=== PATIENT | male | born 1980 | race American Indian/Alaskan Native ===

== ENCOUNTER 2019-03-31 11:09 | Emergency (ER) | payer SELFPAY ==
[2019-03-31] MEDS ORDERED: ASPIRIN PO ONE (11:24)
--- NOTE | 2019-03-31 11:25 | Event Note ---
ED Screening Note Date of service: 03/31/19 Time: 11:22 ED Screening Note: This is a 38 y.o. M. that presents to the ER with chest pain, vomiting, and blurry vision x 3 days. PMH of HTN This initial assessment/diagnostic orders/clinical plan/treatment(s) is/are subject to change based on patients health status, clinical progression and re- assessment by fellow clinical providers in the ED. Further treatment and workup at subsequent clinical providers discretion. Patient/guardian urged not to elope from the ED as their condition may be serious if not clinically assessed and managed. Initial orders include: Labs, EKG, and CXR
[2019-03-31 12:20] LABS: Basophils % (Auto) 0.2 % (0.0-1.8); Eosinophils # (Auto) 0.4 K/mm3 (0.0-0.4); Eosinophils % (Auto) 7.6 % (0.0-4.3); Hematocrit 51.1 % (35.5-45.6); Lymphocytes # (Auto) 1.3 K/mm3 (1.2-5.4); Lymphocytes % (Auto) 27.1 % (13.4-35.0); Mean Corpuscular HGB Conc 33 % (32-34); Mean Corpuscular Volume 92 fl (84-94); Monocytes # (Auto) 0.5 K/mm3 (0.0-0.8); Monocytes % (Auto) 9.7 % (0.0-7.3); Platelet Count 251 K/mm3 (140-440); Red Blood Count 5.58 M/mm3 (3.65-5.03); Red Cell Distribution Width 13.6 % (13.2-15.2)
--- NOTE | 2019-03-31 12:28 | XRay Report ---
CHEST 1 VIEW INDICATION / CLINICAL INFORMATION: Chest Pain. COMPARISON: None available. FINDINGS: SUPPORT DEVICES: None. HEART / MEDIASTINUM: No significant abnormality. LUNGS / PLEURA: No significant pulmonary or pleural abnormality. No pneumothorax. ADDITIONAL FINDINGS: No significant additional findings. IMPRESSION: 1. No significant change Signer Name: Juan Carlos Heard MD Signed: 03/31/2019 12:23 PM Workstation Name: [id number]
[2019-03-31 12:42] LABS: BUN/Creatinine Ratio 8; Blood Urea Nitrogen 16 mg/dL (9-20); Calcium 9.2 mg/dL (8.4-10.2); Hemolysis Index 20
--- NOTE | 2019-03-31 14:20 | Emergency Department Report ---
ED Chest Pain HPI - General Chief Complaint: Chest Pain Stated Complaint: CHEST PAIN/BLURRED VISION Time Seen by Provider: 03/31/19 11:22 Source: patient Mode of arrival: Ambulatory Limitations: No Limitations - History of Present Illness Initial Comments: 38 year-old -Turkish male with no past medical history presents to the emergency room complaining of intermittent chest pain that started last night. Patient also endorses that he had nausea and vomiting on and Monday and had resolved on Monday. Patient reported he had shortness of breath walking which has resolved. Patient reported it was sharp pains worse with walking and better with rest. Patient currently denies any chest pain now denies any nausea no vomiting no abdominal pain or shortness of breath no blurred vision. Patient reports that he had not eaten secondary to concern for vomiting. Patient reports that he is hungry at this time. 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 MD Complaint: chest pain -: This morning Onset: during exertion Pain Location: substernal Severity scale (0 -10): 0 Quality: sharp Consistency: intermittent Improves With: rest Worsens With: other (walking) re: nausea (resolved), vomting (Resolved) Treatments Prior to Arrival: none - Related Data Allergies Allergy/AdvReac Type Severity Reaction Status Date / Time No Known Allergies Allergy Unverified 03/31/19 11:10 Heart Score - HEART Score History: Slightly suspicious EKG: Non-specific Age: < 45 Risk factors: 1-2 risk factors Troponin: < normal limit HEART Score: 2 ED Review of Systems ROS: Stated complaint: CHEST PAIN/BLURRED VISION Other details as noted in HPI Comment: All other systems reviewed and negative ED Past Medical Hx - Past Medical History Previous Medical History?: No - Surgical History Past Surgical History?: No - Social History Smoking Status: Never Smoker Substance Use Type: None ED Physical Exam - General Limitations: No Limitations General appearance: alert, in no apparent distress - Head Head exam: Present: atraumatic, normocephalic - Eye Eye exam: Present: normal appearance - ENT ENT exam: Present: mucous membranes moist - Neck Neck exam: Present: normal inspection - Respiratory Respiratory exam: Present: normal lung sounds bilaterally. Absent: respiratory distress, chest wall tenderness - Cardiovascular Cardiovascular Exam: Present: regular rate, normal rhythm. Absent: systolic murmur, diastolic murmur, rubs, gallop - GI/Abdominal GI/Abdominal exam: Present: soft, normal bowel sounds. Absent: distended, tenderness - Rectal Rectal exam: Present: deferred - Extremities Exam Extremities exam: Present: normal inspection. Absent: pedal edema, joint swelling - Back Exam Back exam: Present: normal inspection - Neurological Exam Neurological exam: Present: alert, oriented X3 - Psychiatric Psychiatric exam: Present: normal affect, normal mood - Skin Skin exam: Present: warm, dry, intact, normal color. Absent: rash ED Course Vital Signs 03/31/19 03/31/19 03/31/19 11:21 12:22 12:27 Temperature 97.5 F L Pulse Rate 116 H 100 H Respiratory 20 16 Rate Blood Pressure 154/110 Blood Pressure 149/105 [Left] O2 Sat by Pulse 98 96 97 Oximetry 03/31/19 03/31/19 03/31/19 12:30 13:00 13:30 Temperature Pulse Rate 99 H 94 H 87 Respiratory 14 13 13 Rate Blood Pressure 149/105 144/105 154/109 Blood Pressure [Left] O2 Sat by Pulse 96 98 Oximetry MIRNA score - Mirna Score Age > 65: (0) No Aspirin use within the Past 7 Days: (0) No 3 or more CAD Risk Factors: (0) No 2 or more Angina events in past 24 hrs: (0) No Known CAD with more than 50% Stenosis: (0) No Elevated Cardiac Markers: (0) No ST Deviation Greater than 0.5mm: (0) No MIRNA Score: 0 ED Medical Decision Making - Lab Data Result diagrams: 03/31/19 12:09 03/31/19 12:09 - Medical Decision Making 38 year-old -Turkish male with no past medical history presents to the emergency room complaining of intermittent chest pain that started last night. Patient also endorses that he had nausea and vomiting on and Monday and had resolved on Monday. Patient reported he had shortness of breath walking which has resolved. Patient reported it was sharp pains worse with walking and better with rest. Patient currently denies any chest pain now denies any nausea no vomiting no abdominal pain or shortness of breath no blurred vision. Patient reports that he had not eaten secondary to concern for vomiting. Patient reports that he is hungry at this time. 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 Patient workup is within normal limits. Patient currently has no complaints during my interview and my assessment. Patient be discharged home to follow up with a primary care provider and he can follow-up with [facility]. Critical care attestation.: If time is entered above; I have spent that time in minutes in the direct care of this critically ill patient, excluding procedure time. ED Disposition Clinical Impression: Nausea and vomiting in adult, Atypical chest pain Disposition: DC- TO HOME OR SELFCARE Is pt being admited?: No Does the pt Need Aspirin: No Condition: Stable Instructions: Chest Pain (ED), Acute Nausea and Vomiting (ED) Additional Instructions: Please follow-up with shoe salesman and her primary care provider. Referrals: [facility] [Provider Group] - 3-5 Days [facility] [Outside] - 3-5 Days Forms: Work/School Release Form(ED)
[2019-03-31 15:18] LABS: Alanine Aminotransferase 13 units/L (7-56); Albumin 3.9 g/dL (3.9-5)
[2019-03-31 15:24] LABS: Bilirubin,Direct < 0.2 mg/dL (0-0.2)
[2019-03-31 16:13] LABS: Bacteria,Urine 1+ /HPF (Negative); Bilirubin,Urine NEG (Negative); Blood,Urine SM (Negative); Color,Urine Yellow (Yellow); Mucus,Urine FEW /HPF; Protein,Urine <15 mg/dL mg/dL (Negative); Urobilinogen,Urine < 2.0 mg/dL (<2.0)
[2019-03-31 17:31] VITALS: BP 153/110
== END 2019-03-31 17:31 | disposition home or self-care (01) ==
LOC: ED 11:09
DX: R11.2 Nausea with vomiting, unspecified (principal); R07.89 Other chest pain
CPT/HCPCS: 36415; 71045; 80048; 80076; 81001; 84484; 85025; 93005; 93010

== ENCOUNTER 2020-06-01 19:07 | Emergency (ER) | payer SELFPAY ==
[2020-06-01] MEDS ORDERED: ACETAMINOPHEN 325 MG TAB PO ONE (19:40)
[2020-06-01] MEDS ORDERED: diphenhydrAMINE 25 MG CAP PO ONE (19:40)
[2020-06-01] MEDS ORDERED: IBUPROFEN 600 MG TAB PO ONE (19:40)
[2020-06-01] MEDS ORDERED: DIPHtheria,PERTUSSIS(ACELL),TETANUS VACCINE/PF 0.5 ML VIAL IM ONE (19:41)
--- NOTE | 2020-06-01 19:41 | Emergency Department Report ---
- General Chief complaint: Skin/Abscess/Foreign Body Stated complaint: INSECT BITE Time Seen by Provider: 06/01/20 19:40 Source: patient Mode of arrival: Wheelchair Limitations: No Limitations - History of Present Illness Initial comments: Patient is a 39-year-old male who presents emergency room with complaints of a insect bite to the right foot that occurred couple hours prior to arrival. He states that he felt something bite him but did not see what it was. He states he has pain and a burning sensation to his foot. He denies any fever, vomiting, diarrhea, numbness, weakness. He denies any known allergies. No past medical history. He states he is unsure of his last tetanus immunization. - Related Data Previous Rx's Medication Instructions Recorded Last Taken Type cephALEXin [Keflex] 500 mg PO QID 7 Days #28 cap 06/01/20 Unknown Rx diphenhydrAMINE [Benadryl CAP] 25 mg PO Q8HR PRN #14 capsule 06/01/20 Unknown Rx Allergies Allergy/AdvReac Type Severity Reaction Status Date / Time No Known Allergies Allergy Verified 06/01/20 19:22 Abscess Boil HPI - HPI Chief Complaint: Skin/Abscess/Foreign Body Stated Complaint: INSECT BITE Time Seen by Provider: 06/01/20 19:40 Home Medications: Previous Rx's Medication Instructions Recorded Last Taken Type cephALEXin [Keflex] 500 mg PO QID 7 Days #28 cap 06/01/20 Unknown Rx diphenhydrAMINE [Benadryl CAP] 25 mg PO Q8HR PRN #14 capsule 06/01/20 Unknown Rx Allergies/Adverse Reactions: Allergies Allergy/AdvReac Type Severity Reaction Status Date / Time No Known Allergies Allergy Verified 06/01/20 19:22 ED Review of Systems ROS: Stated complaint: INSECT BITE Other details as noted in HPI Comment: All other systems reviewed and negative ED Past Medical Hx - Past Medical History Previous Medical History?: No - Surgical History Past Surgical History?: No - Social History Smoking Status: Never Smoker Substance Use Type: None - Medications Home Medications: Home Medications Medication Instructions Recorded Confirmed Last Taken Type cephALEXin [Keflex] 500 mg PO QID 7 Days #28 cap 06/01/20 Unknown Rx diphenhydrAMINE [Benadryl CAP] 25 mg PO Q8HR PRN #14 capsule 06/01/20 Unknown Rx ED Physical Exam - General Limitations: No Limitations General appearance: alert, in no apparent distress - Head Head exam: Present: atraumatic, normocephalic - Eye Eye exam: Present: normal appearance - ENT ENT exam: Present: mucous membranes moist - Respiratory Respiratory exam: Absent: respiratory distress, accessory muscle use - Neurological Exam Neurological exam: Present: alert, oriented X3 - Psychiatric Psychiatric exam: Present: normal affect, normal mood - Skin Skin exam: Present: warm, dry, other (2 cm area of erythema to the right dorsal foot just below the toes, no induration or fluctuance, no necrosis, no opening, no bite sewell, neurovascularly intact,FROM) ED Course Vital Signs 06/01/20 21:09 Temperature 98.3 F Pulse Rate 95 H Respiratory 20 Rate Blood Pressure 136/84 [Left] O2 Sat by Pulse 97 Oximetry ED Medical Decision Making - Medical Decision Making Patient is a 39-year-old male who presents emergency room with complaints of a insect bite to the right foot that occurred couple hours prior to arrival. He states that he felt something bite him but did not see what it was. He states he has pain and a burning sensation to his foot. He denies any fever, vomiting, diarrhea, numbness, weakness. He denies any known allergies. No past medical history. He states he is unsure of his last tetanus immunization. VSS. on exam: 2 cm area of erythema to the right dorsal foot just below the toes, no induration or fluctuance, no necrosis, no opening, no bite sewell, neurovascularly intact,FROM. Symptoms with localized cellulitis. Patient given ibuprofen, Tylenol, Benadryl, Tdap while in the emergency department and symptoms completely improved and he was feeling much better made to go home. Patient given prescription for Keflex and Benadryl. Advised patient Please take medication as prescribed. Benadryl may cause drowsiness, do not drive or operate machinery while taking. Follow-up with primary care doctor. Return to emergency room for any new or worsening symptoms. Critical care attestation.: If time is entered above; I have spent that time in minutes in the direct care of this critically ill patient, excluding procedure time. ED Disposition Clinical Impression: Insect bite Qualifiers: Encounter type: initial encounter Site of insect bite: foot Laterality: right Qualified Code(s): S90.861A - Insect bite (nonvenomous), right foot, initial encounter Cellulitis Qualifiers: Site of cellulitis: extremity Site of cellulitis of extremity: lower extremity Laterality: right Qualified Code(s): L03.115 - Cellulitis of right lower limb Disposition: - TO HOME OR SELFCARE Is pt being admited?: No Does the pt Need Aspirin: No Condition: Stable Instructions: Cellulitis, Adult, [id number], Insect Bite, Adult Additional Instructions: Please take medication as prescribed. Benadryl may cause drowsiness, do not drive or operate machinery while taking. Follow-up with primary care doctor. Return to emergency room for any new or worsening symptoms. Prescriptions: diphenhydrAMINE [Benadryl CAP] 25 mg PO Q8HR PRN #14 capsule PRN Reason: itching/swelling cephALEXin [Keflex] 500 mg PO QID 7 Days #28 cap Referrals: STEPHANIE VALVERDE MD [Primary Care Provider] - 2-3 Days IDALIA BOOTH MD [Staff Physician] - 2-3 Days [facility] [Provider Group] - 2-3 Days Time of Disposition: 20:14 Print Language: ICELANDIC
[2020-06-01 21:10] VITALS: BP 136/84
== END 2020-06-01 21:00 | disposition home or self-care (01) ==
LOC: ED 19:07
DX: S91.351A Open bite, right foot, initial encounter (principal); L03.115 Cellulitis of right lower limb; Z79.899 Other long term (current) drug therapy; X58.XXXA Exposure to other specified factors, initial encounter; Y93.89 Activity, other specified; Y92.89 Other specified places as the place of occurrence of the external cause; Y99.8 Other external cause status
CPT/HCPCS: 90471; 90715; 99282